=== PATIENT | female | born 1970 | race African-American/Black ===

== ENCOUNTER 2020-09-07 10:13 | Outpatient (REF) | payer OTHER, SELFPAY ==
[2020-09-07 10:45] LABS: COVID-19 Test Negative (Negative)
== END 2020-09-07 10:14 | disposition home or self-care (01) ==
LOC: HO.LAB 10:13
PROVIDERS: Visit Provider Internal Medicine
DX: Z20.828 Contact with and (suspected) exposure to other viral communicable diseases (principal)
CPT/HCPCS: 87635

== ENCOUNTER 2020-10-09 12:07 | Outpatient (REF) | payer OTHER, SELFPAY ==
[2020-10-09 12:59] LABS: COVID-19 Test Negative (Negative)
== END 2020-10-09 12:08 | disposition home or self-care (01) ==
LOC: HO.EMPCOV 12:07
PROVIDERS: Visit Provider Internal Medicine
DX: Z20.828 Contact with and (suspected) exposure to other viral communicable diseases (principal)
CPT/HCPCS: 87635; C9803

== ENCOUNTER 2020-10-23 14:12 | Outpatient (REF) | payer OTHER, SELFPAY ==
[2020-10-23 14:48] LABS: COVID-19 Test Negative (Negative)
== END 2020-10-23 14:13 | disposition home or self-care (01) ==
LOC: HO.EMPCOV 14:12
PROVIDERS: Visit Provider Internal Medicine
DX: Z20.828 Contact with and (suspected) exposure to other viral communicable diseases (principal)
CPT/HCPCS: 87635; C9803

== ENCOUNTER 2020-11-08 12:36 | Outpatient (REF) | payer OTHER, SELFPAY ==
[2020-11-08 13:03] LABS: COVID-19 Test Negative (Negative)
== END 2020-11-08 12:37 | disposition home or self-care (01) ==
LOC: HO.EMPCOV 12:36
PROVIDERS: Visit Provider Internal Medicine
DX: Z20.828 Contact with and (suspected) exposure to other viral communicable diseases (principal)
CPT/HCPCS: 87635; C9803

== ENCOUNTER 2020-11-27 08:35 | Outpatient (REF) | payer OTHER, SELFPAY ==
[2020-11-27 09:03] LABS: COVID-19 Test Negative (Negative)
== END 2020-11-27 08:36 | disposition home or self-care (01) ==
LOC: HO.EMPCOV 08:35
PROVIDERS: Visit Provider Internal Medicine
DX: Z20.822 Contact with and (suspected) exposure to COVID-19 (principal)
CPT/HCPCS: 36415; 87635; C9803

== ENCOUNTER 2023-12-26 15:20 | Outpatient (REF) | payer OTHER, SELFPAY ==
[2023-12-26 16:24] LABS: Influenza A PCR NEGATIVE (Negative); Influenza B PCR NEGATIVE (Negative); Resp Syncy Virus RNA Qual PCR NEGATIVE (Negative); SARS COV2 PCR INHOUSE POSITIVE (Negative)
== END 2023-12-26 15:21 | disposition home or self-care (01) ==
LOC: HO.LAB 15:20
PROVIDERS: Visit Provider Internal Medicine
DX: Z11.52 Encounter for screening for COVID-19 (principal); Z20.822 Contact with and (suspected) exposure to COVID-19
CPT/HCPCS: 0241U

== ENCOUNTER 2024-08-02 09:25 | Outpatient (REF) | payer OTHER, SELFPAY ==
[2024-08-02 10:02] LABS: COVID-19 Test Negative (Negative); IDNOW Serial# 152EDE1D
== END 2024-08-02 09:26 | disposition home or self-care (01) ==
LOC: HO.LAB 09:25
PROVIDERS: Visit Provider Internal Medicine
DX: R09.89 Other specified symptoms and signs involving the circulatory and respiratory systems (principal)
CPT/HCPCS: 87635